=== PATIENT | female | born 1955 | race Caucasian/White ===

== ENCOUNTER 2019-12-12 07:10 | Outpatient (CLI) | payer OTHER, SELFPAY ==
--- NOTE | ~2019-12-12 | MM_ITS ---
EXAMINATION: MM screening [facility] BI w [facility]a HISTORY: Screening TECHNIQUE: Craniocaudal and mediolateral oblique 3-D tomosynthesis images were obtained and synthetic 2-D images were generated. CAD analysis was submitted and interpreted. COMPARISON: Comparison to multiple prior studies sequentially, with oldest reviewed study dated 06/2010. BREAST PARENCHYMAL COMPOSITION: The breasts are almost entirely fatty. FINDINGS: There is no evidence of suspicious mass, calcification, or architectural distortion to sugg est malignancy in either breast. There has been no suspicious interval change. IMPRESSION: 1. No mammographic evidence of malignancy. 2. Recommend routine screening mammography in one year. BI-RADS Category 1: Negative Reviewed, dictated and finalized at location A.
== END 2019-12-12 07:11 | disposition home or self-care (01) ==
PROVIDERS: PCP Family Medicine; Visit Provider Family Medicine
DX: Z12.31 Encounter for screening mammogram for malignant neoplasm of breast (principal)
CPT/HCPCS: 77063; 77067

== ENCOUNTER → 2020-01-16 09:31 | Outpatient (CLI) | payer OTHER, SELFPAY ==
--- NOTE | ~2020-01-16 | MR_ITS ---
EXAMINATION: MR knee LT wo con DATE: 01/16/2020 12:11 INDICATION: Left knee pain. Medial meniscal tear. TECHNIQUE: Magnetic resonance imaging (MRI) of the left knee was performed without intravenous contra st. Sequences included axial PD-weighted FS FSE, coronal PD-weighted FSE and PD-weighted FS FSE, sagi ttal PD-weighted FSE, and sagittal T2-weighted FS FSE. COMPARISON: Left knee radiographs 05/20/2018 FINDINGS: Medial compartment: There is a radial tear involving posterior horn of medial meniscus. There is deep partial thickness c artilage loss involving the medial and posterior articular surface of tibial condyle. There is full-t hickness cartilage loss of femoral condyle involving the central and posterior articular surface. The re are large marginal osteophytes. Lateral compartment: There is maceration of lateral meniscus. There is extensive full-thickness cartilage loss of femoral condyle and tibial condyle with cortical remodeling, mild subchondral edema-like marrow signal intens ity, and large osteophytes. Patellofemoral compartment: There is shallow partial-thickness cartilage loss involving patella and trochlea. There is deep parti al thickness cartilage loss involving central trochlea. There are large marginal osteophytes. Ligaments and tendons: There is a complete tear of anterior cruciate ligament. There are changes of tear of posterior crucia te ligament characterized by thickening and increased signal intensity. There are changes of prior sp rains of medial collateral ligament and fibular collateral ligament characterized by increased signal intensity proximally. There is mild patellar tendinopathy. Fluid: There is a large knee joint effusion with large loose bodies. There is a small John's cyst. There is moderate prepatellar and superficial infrapatellar bursitis. IMPRESSION: 1. 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 2. Tears of medial and lateral menisci. 3. Complete tear of anterior cruciate ligament. 4. Posterior cruciate ligament tear. 5. Large knee joint effusion with loose bodies. 6. Small John's cyst. Reviewed, dictated and finalized at location A. IMPRESSION: 1. 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 2. Tears of medial and lateral menisci. 3. Complete tear of anterior cruciate ligament. 4. Posterior cruciate ligament tear. 5. Large knee joint effusion with loose bodies. 6. Small John's cyst.
== END ==
PROVIDERS: PCP Family Medicine
DX: M71.22 Synovial cyst of popliteal space [Baker], left knee (principal); M25.462 Effusion, left knee; S83.522A Sprain of posterior cruciate ligament of left knee, initial encounter; X58.XXXA Exposure to other specified factors, initial encounter; S83.512A Sprain of anterior cruciate ligament of left knee, initial encounter; S83.282A Other tear of lateral meniscus, current injury, left knee, initial encounter; S83.242A Other tear of medial meniscus, current injury, left knee, initial encounter
CPT/HCPCS: 73721

== ENCOUNTER 2021-05-13 07:38 | Outpatient (CLI) | payer MEDICARE, OTHER, SELFPAY ==
--- NOTE | ~2021-05-13 | MM_ITS ---
EXAMINATION: MM screening [facility] BI w mina HISTORY: Screening TECHNIQUE: Craniocaudal and mediolateral oblique 3-D tomosynthesis images were obtained and synthetic 2-D images were generated. CAD analysis was submitted and interpreted. COMPARISON: Comparison to multiple prior studies sequentially, with oldest reviewed study dated 03/06. BREAST PARENCHYMAL COMPOSITION: There are scattered areas of fibroglandular density. FINDINGS: There is no evidence of suspicious mass, calcification, or architectural distortion to sugg est malignancy in either breast. There has been no suspicious interval change. IMPRESSION: 1. No mammographic evidence of malignancy. 2. Recommend routine screening mammography in one year. BI-RADS Category 1: Negative Reviewed, dictated and finalized at location A. R RELATIONS MANAGER
== END 2021-05-13 07:39 | disposition home or self-care (01) ==
PROVIDERS: PCP Family Medicine; Visit Provider Physician Assistant Medical
DX: Z12.31 Encounter for screening mammogram for malignant neoplasm of breast (principal)
CPT/HCPCS: 77063; 77067

== ENCOUNTER 2021-05-23 00:08 | Day surgery (SDC) | payer MEDICARE, OTHER, SELFPAY ==
[2021-05-08 13:08] VITALS: BMI 36.3
[2021-05-23 06:30] VITALS: BP 143/63; PULSE 75; RESP 16; TEMP 35.8; O2SAT 100
[2021-05-23] MEDS: LACTATED RINGERS 1,000 ML 150 ML IV CONT (06:34)
--- NOTE | 2021-05-23 06:51 | WPDANESEPPF ---
Anes - Initial Pre Proc Eval Procedure: Operation Date: 05/23/21 07:30 Proposed Procedures p Screening Colonoscopy - Moises Lee MD Date/Time: 05/23/21 06:51 Surgeon: Moises Lee MD Pre Op Diagnosis: family hx of colon ca, hx of colon polyps Patient Data Age: 66 Gender: F Height: 1.8 m Weight: 118.1 kg Last Vital Signs Temp 35.8 C L 05/23/21 06:30 Pulse 75 05/23/21 06:30 Resp 16 05/23/21 06:30 BP 143/63 H 05/23/21 06:30 Pulse Ox 100 05/23/21 06:30 Allergies Allergy/AdvReac Type Severity Reaction Status Date / Time No Known Allergies Allergy Unknown Verified 05/23/21 06:29 Home Medications Medication Instructions Recorded Confirmed Type sertraline 50 mg PO DAILY 05/23/21 05/23/21 History Patient hx anesthesia problems: none Family hx anesthesia problems: none Results Review: All pre-operative results and documents have been reviewed as part of the pre-operative evaluation. [facility] Past Medical History Medical History Obesity Surgical History Surgical History History of appendectomy History of knee surgery History of total left knee replacement History of tubal ligation Hx of cholecystectomy Family History Family History Mother Patient's mother is Diabetes mellitus Family history of arthritis Carcinoma of colon Father Cerebrovascular accident Family history of malignant neoplasm Family history of malignant neoplasm of kidney Grandparent Diabetes mellitus Family history of cardiovascular disease Family history of Alzheimer's disease Other Family history of kidney disease Social History Social History Smoking packs per day: 0.5 Smoking cigarettes per day: 10.0 Smoking end date: 05/06/85 Alcohol intake: never Substance use: never Substance use type: does not use Living arrangements: alone Spiritual care concerns: No Anes - Eval Final PreProcedure Day of Procedure 05/23/21 06:51 Patient weight: obese Heart: regular rate and rhythm and murmur (II/ SM) Lungs: clear to auscultation Airway: Mallampati scale class II Neurological: alert and oriented Last oral intake: >/= 8 hours ASA classification: II Emergent: no Anesthetic plan: proceed Anesthesia type and monitoring: general GIVS and standard monitoring Results Review: All pre-operative results and documents have been reviewed as part of the pre-operative evaluation. Informed Consent: The patient's anesthetic plan and its attendant risks and benefits were discussed with the patient/family/POA. Questions were solicited and answers provided to the satisfaction of the patient/family/POA.
--- NOTE | 2021-05-23 07:28 | WPDGICN ---
Assessment and Plan Assessment and plan (1) Anemia: Code(s): D64.9 - Anemia, unspecified Status: Acute Assessment and Plan: Patient with microcytic anemia it plan is to check stool Hemoccult start iron replacement. Iron studies will be obtained today. Colonoscopy anticipated. If iron is deficient may need to also consider upper GI evaluation at some point in the future. (2) History of colon polyps: Code(s): Z86.010 - Personal history of colonic polyps Status: Acute Assessment and Plan: Patient has a prior history of colon polyps this will be assessed colonoscopy today and should be considered at 5 year intervals in the future. (3) Family history of colon cancer in mother: Code(s): Z80.0 - Family history of malignant neoplasm of digestive organs Status: Acute Assessment and Plan: Patient's mother had colon cancer. Plan is for surveillance colonoscopy now and at 5 year intervals in the future. GI Consult Note Consult date/time: 05/23/21 07:28 HPI: Moni Ontiveros is a 66 year old female Presents for colonoscopy. Patient recently found to have anemia. She denies any obvious blood in her stools. In April was noted to have microcytic anemia. She has not started iron nor has had iron studies performed. Past medical history is significant for colon polyps removed by Dr. Arroyo several years ago. Family history is significant that her mother had colon cancer. Patient presents today for surveillance exam. It is uncertain why she has new anemia. No old lab studies are available for review. Review of Systems Review of Systems: All systems reviewed & are unremarkable except as noted in HPI and below PMFSH Past Medical History Medical History Obesity Surgical History Surgical History History of appendectomy History of knee surgery History of total left knee replacement History of tubal ligation Hx of cholecystectomy Family History Family History Mother Patient's mother is Diabetes mellitus Family history of arthritis Carcinoma of colon Father Cerebrovascular accident Family history of malignant neoplasm Family history of malignant neoplasm of kidney Grandparent Diabetes mellitus Family history of cardiovascular disease Family history of Alzheimer's disease Other Family history of kidney disease Social History Social History Smoking packs per day: 0.5 Smoking cigarettes per day: 10.0 Smoking end date: 05/06/85 Alcohol intake: never Substance use: never Substance use type: does not use Living arrangements: alone Spiritual care concerns: No Meds Home Medications and Allergies Home Medications Medication Instructions Recorded Confirmed Type sertraline 50 mg PO DAILY 05/23/21 05/23/21 History Allergies Allergy/AdvReac Type Severity Reaction Status Date / Time No Known Allergies Allergy Unknown Verified 05/23/21 06:29 Vital Signs Vital Signs - 24 hr 05/23/21 06:30 Temperature 96.5 F L Pulse Rate 75 Respiratory Rate 16 Blood Pressure 143/63 H Pulse Oximetry 100 Exam Narrative: Physical exam reveals patient be alert. Vital signs stable. HEENT exam is unremarkable. Patient is anicteric. Lungs are clear to auscultation and percussion. Heart is without murmur or extra sounds. Abdominal exam bowel sounds are present soft nontender with no hepatosplenomegaly. Digital external rectal exam is normal.
[2021-05-23] MEDS: SIMETHICONE ORAL SUSPENSION 20 MG/0.3 ML 30 ML BOTTLE 0.6 ML IRRIGATION (07:40)
[2021-05-23 07:49] VITALS: BP 89/54; PULSE 73; RESP 17; O2SAT 100
[2021-05-23 07:59] VITALS: BP 109/68; PULSE 78; RESP 15; O2SAT 99
[2021-05-23 08:09] VITALS: BP 138/55; PULSE 68; RESP 15; O2SAT 99
[2021-05-23 08:39] LABS: Iron 39 ug/dL (37-170)
[2021-05-23 08:47] LABS: Percent Iron Saturation 9 % (20-50)
[2021-05-23 09:16] LABS: Ferritin 7.39 ng/mL (11.1-264)
== END 2021-05-23 08:25 | disposition home or self-care (01) ==
PROVIDERS: PCP Family Medicine; Visit Provider Internal Medicine Gastroenterology
PROC: 0DJD8ZZ Inspection of Lower Intestinal Tract, Via Natural or Artificial Opening Endoscopic (ICD-10-PCS; CPT 45378; principal; 2021-05-23 07:30)
DX: D64.9 Anemia, unspecified (principal); K64.8 Other hemorrhoids; K57.30 Diverticulosis of large intestine without perforation or abscess without bleeding; E66.9 Obesity, unspecified; Z68.36 Body mass index [BMI] 36.0-36.9, adult
CPT/HCPCS: 45378; 36415; 82728; 83540; 83550; J2704; J7120

== ENCOUNTER 2021-06-05 02:08 | Day surgery (SDC) | payer MEDICARE, OTHER, SELFPAY ==
[2021-05-25 14:04] VITALS: BMI 36.3
[2021-06-05 08:50] VITALS: BP 135/78; PULSE 78; RESP 17; TEMP 36.4; O2SAT 99; BMI 36.6
--- NOTE | 2021-06-05 08:54 | P.PNAN_ITS ---
Anes - Initial Pre Proc Eval Procedure: Operation Date: 06/05/21 09:30 Proposed Procedures p Esophagogastroduodenoscopy - Moises Lee MD Date/Time: 06/05/21 08:54 Surgeon: Moises Lee MD Pre Op Diagnosis: BLANCO Patient Data Age: 66 Gender: F Height: 1.8 m Weight: 119.3 kg Last Vital Signs Temp 36.4 C 06/05/21 08:50 Pulse 78 06/05/21 08:50 Resp 17 06/05/21 08:50 BP 135/78 06/05/21 08:50 Pulse Ox 99 06/05/21 08:50 Allergies Allergy/AdvReac Type Severity Reaction Status Date / Time No Known Allergies Allergy Unknown Verified 06/05/21 08:49 Home Medications Medication Instructions Recorded Confirmed Type sertraline 50 mg PO DAILY 05/23/21 06/05/21 History Patient hx anesthesia problems: none Family hx anesthesia problems: none Results Review: All pre-operative results and documents have been reviewed as part of the pre-operative evaluation. [facility] Past Medical History Medical History Obesity Surgical History Surgical History History of appendectomy History of knee surgery History of total left knee replacement History of tubal ligation Hx of cholecystectomy Family History Family History Mother Patient's mother is Diabetes mellitus Family history of arthritis Carcinoma of colon Father Cerebrovascular accident Family history of malignant neoplasm Family history of malignant neoplasm of kidney Grandparent Diabetes mellitus Family history of cardiovascular disease Family history of Alzheimer's disease Other Family history of kidney disease Social History Social History Smoking packs per day: 0.5 Smoking cigarettes per day: 10.0 Smoking status: Former smoker Smoking end date: 05/06/85 Alcohol intake: never Substance use: never Substance use type: does not use Living arrangements: alone Spiritual care concerns: No Anes - Eval Final PreProcedure Day of Procedure 06/05/21 08:54 Patient weight: obese Heart: regular rate and rhythm Lungs: clear to auscultation Airway: Mallampati scale class II Neurological: alert and oriented Last oral intake: >/= 8 hours ASA classification: II Emergent: no Anesthetic plan: proceed Anesthesia type and monitoring: general GIVS and standard monitoring Results Review: All pre-operative results and documents have been reviewed as part of the pre-operative evaluation. Informed Consent: The patient's anesthetic plan and its attendant risks and benefits were discussed with the patient/family/POA. Questions were solicited and answers provided to the satisfaction of the patient/family/POA.
[2021-06-05] MEDS: LACTATED RINGERS 1,000 ML 150 ML IV CONT (09:03)
--- NOTE | 2021-06-05 09:20 | P.CONGI_ITS ---
Assessment and Plan Assessment and plan (1) BLANCO (iron deficiency anemia): Code(s): D50.9 - Iron deficiency anemia, unspecified Status: Acute Assessment and Plan: Patient with iron deficiency anemia. Recent colonoscopy unremarkable. Plan is for EGD to assess for other potential contributing causes for anemia. (2) Family history of colon cancer in mother: Code(s): Z80.0 - Family history of malignant neoplasm of digestive organs Status: Acute (3) History of colon polyps: Code(s): Z86.010 - Personal history of colonic polyps Status: Acute GI Consult Note Consult date/time: 06/05/21 09:20 HPI: Moni Ontiveros is a 66 year old female Presents for EGD. Patient was found to have microcytic anemia with iron deficient indices. Recent colonoscopy was unremarkable. She presents today for EGD. She denies abdominal pain. She has had no obvious bleeding. Family history is significant that she has had colon polyps in the past in her mother had colon cancer. Surveillance colonoscopy has been advised every 5 years. Because of iron deficiency anemia an EGD is requested today. [facility] Past Medical History Medical History Obesity Surgical History Surgical History History of appendectomy History of knee surgery History of total left knee replacement History of tubal ligation Hx of cholecystectomy Family History Family History Mother Patient's mother is Diabetes mellitus Family history of arthritis Carcinoma of colon Father Cerebrovascular accident Family history of malignant neoplasm Family history of malignant neoplasm of kidney Grandparent Diabetes mellitus Family history of cardiovascular disease Family history of Alzheimer's disease Other Family history of kidney disease Social History Social History Smoking packs per day: 0.5 Smoking cigarettes per day: 10.0 Smoking status: Former smoker Smoking end date: 05/06/85 Alcohol intake: never Substance use: never Substance use type: does not use Living arrangements: alone Spiritual care concerns: No Meds Home Medications and Allergies Home Medications Medication Instructions Recorded Confirmed Type sertraline 50 mg PO DAILY 05/23/21 06/05/21 History Allergies Allergy/AdvReac Type Severity Reaction Status Date / Time No Known Allergies Allergy Unknown Verified 06/05/21 08:49 Vital Signs Vital Signs - 24 hr 06/05/21 08:50 Temperature 97.6 F Pulse Rate 78 Respiratory Rate 17 Blood Pressure 135/78 Pulse Oximetry 99 Exam Narrative: Physical exam reveals patient to be alert. Vital signs stable. HEENT exam is unremarkable. Patient is anicteric. Lungs are clear to auscultation and percussion. Heart is without murmur or extra sounds. Abdominal exam bowel sounds present soft nontender with no hepatosplenomegaly. Digital external rectal exam deferred today.
[2021-06-05 09:41] VITALS: BP 103/54; PULSE 79; RESP 19; O2SAT 94
[2021-06-05 09:51] VITALS: BP 112/64; PULSE 71; RESP 18; O2SAT 94
[2021-06-05 10:01] VITALS: BP 117/48; PULSE 73; RESP 18; O2SAT 99
== END 2021-06-05 10:09 | disposition home or self-care (01) ==
PROVIDERS: PCP Family Medicine; Visit Provider Internal Medicine Gastroenterology
PROC: 0DJ08ZZ Inspection of Upper Intestinal Tract, Via Natural or Artificial Opening Endoscopic (ICD-10-PCS; CPT 43235; principal; 2021-06-05 09:30)
DX: D50.9 Iron deficiency anemia, unspecified (principal); K29.80 Duodenitis without bleeding; Z86.010 Personal history of colon polyps; Z80.0 Family history of malignant neoplasm of digestive organs; E66.9 Obesity, unspecified; Z68.36 Body mass index [BMI] 36.0-36.9, adult; Z87.891 Personal history of nicotine dependence
CPT/HCPCS: 43239; 87081; 88305; J2001; J2704; J7120

== ENCOUNTER 2021-10-13 18:22 | Observation (INO) | payer MEDICARE, OTHER, SELFPAY ==
[2021-10-13] VITALS (10 sets, daily range): BP systolic 91–148; BP diastolic 43–87; PULSE 77–96; RESP 17–20; TEMP 36.2–36.6; O2SAT 92–97; BMI 37.3
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
[2021-10-13] MEDS: HYDROmorphone HCL INJ (*CRX) 2 MG/ML VIAL 0.5 MG IV PUSH (19:33)
[2021-10-13] MEDS: ONDANSETRON INJ 4 MG/2 ML VIAL IV PUSH (19:33)
--- NOTE | 2021-10-13 19:40 | PC.NURSE ---
C-Collar removed per MD Tidwell. pt instructed to remain in ER bed and she is to remain NPO at this time.
[2021-10-13 19:45] LABS: Basophils Absolute Auto 0.09 K/mm3 (0.00-0.10); Basophils Percent Auto 0.5 % (0.0-1.0); Eosinophils Absolute Auto 0.16 K/mm3 (0.02-0.50); Hematocrit 39.3 % (35.0-42.0); Hemoglobin 12.5 g/dL (11.7-13.8); Immature Granulocyte Absolute 0.09 K/mm3 (0.00-0.00); Immature Granulocyte Percent A 0.5 % (0.0-0.0); Lymphocytes Absolute Auto 1.83 K/mm3 (1.10-4.50); Lymphocytes Percent Auto 11.1 % (18.0-42.0); Mean Corpuscular HGB Conc 31.8 g/dL (32.0-36.0); Mean Corpuscular Hemoglobin 29.7 pg (27.0-31.0); Mean Corpuscular Volume 93.3 fL (78.0-102.0); Mean Platelet Volume 9.5 fl (9.2-11.8); Monocytes Percent Auto 7.3 % (2.0-11.0); Neutrophils Absolute Auto 13.1 K/mm3 (1.7-7.2); Neutrophils Percent Auto 79.6 % (50.0-70.0); Platelet Count Result 313 K/mm3 (150-420); Red Blood Count 4.21 M/mm3 (4.20-5.40); Red Cell Distribution Width 15.2 % (11.6-14.4); White Blood Count 16.4 K/mm3 (4.8-10.8)
[2021-10-13 20:03] LABS: Alanine Aminotransferase 41 U/L (14-59); Albumin Level 3.8 g/dL (3.4-5.0); Alkaline Phosphatase 82 U/L (46-116); Anion Gap 8 mmol/L (8-16); Aspartate Amino Transferase 45 U/L (15-37); Bilirubin,Total 0.3 mg/dL (0.00-1.00); Blood Urea Nitrogen 17 mg/dL (7-18); Calcium 9.1 mg/dL (8.5-10.1); Carbon Dioxide 27 mmol/L (21-32); Chloride 104 mmol/L (98-108); Estimated CRCL calculation 84 ml/min; Estimated Glomerular Filt Rate > 60; Glucose 154 mg/dL (70-99); Lipase 126 U/L (73-393); Osmolality Calculated 292 mOsm/kg (285-295); Potassium 3.8 mmol/L (3.5-5.1); Sodium 139 mmol/L (136-145); Troponin I 5.4 ng/L (0.00-60.4)
--- NOTE | 2021-10-13 20:20 | PC.NURSE ---
pt attempted to stand up, pt became dizzy and nauseous while sitting on the side of the bed. Pt back in bed with head of bed elevated. Md Tidwell updated with patient status.
[2021-10-13 21:08] LABS: Add Urine Microscopic? YES; Appearance Urine Clear (Clear); Bilirubin Urine Negative (Negative); Blood Urine Negative (Negative); Color Urine Light Yellow (Yellow); Glucose Urine UA Negative (Negative); Ketones Urine Negative (Negative); Leukocyte Esterase Ur Trace (Negative); Nitrate Urine Negative (Negative); Protein Urine Negative (Negative); Urobilinogen Urine 0.2 mg/dL (0.2-1.0)
[2021-10-13 21:19] LABS: Bacteria Urine 1+ /hpf; Mucus Urine Heavy /lpf; Squamous Epithelial Cell Urine Few /hpf (Few); WBC Urine 0-3 /hpf (0-3)
--- NOTE | 2021-10-13 21:48 | PC.NURSE ---
pt to be admitted to room 205 for observation.
--- NOTE | 2021-10-13 22:00 | ADMGEN ---
This patient, Moni Ontiveros, was admitted to 2nd Floor Room 205-2 for 23 hr obs. Patient/family oriented to hospital policies and general routines including ID bracelet, bed and alarms, visiting hours, pain management, procedures, bathroom and other care routines, personal items, smoking policy, room service/diet, and visiting hours. Information on how to activate the Rapid Response Team has been discussed. Patient/Family are encouraged to report perceived risks to care and to ask questions if they do not understand what they are told or what they should do.
[2021-10-13] MEDS: traZODone HCL 50 MG TABLET PO (22:30)
--- NOTE | 2021-10-13 22:48 | PC.NURSE ---
pt given HS snack of turkey sandwich, fruit and ice cream. Pt is A&O x3 on arrival to unit. Explained and discussed POC for night. Pt given Trazadone for sleep per her request, call [place]ork at pt side and encouraged to call if needed. Pt reports understanding.
[2021-10-14] MEDS: HYDROcodone/acetaminophen (*CRX) 5-325 MG TABLET 1 TAB PO ×2 (03:02→08:08)
--- NOTE | 2021-10-14 03:04 | PC.NURSE ---
SBA up to commode, did walk to sink to wash hands, tolerated well, sore all over, worse in sternal area and in her left hip/leg, given pain medication for pain, back to bed with call light in reach
[2021-10-14] MEDS: IBUPROFEN 400 MG TABLET PO (06:57)
[2021-10-14 07:28] VITALS: BP 126/45; PULSE 71; RESP 18; TEMP 36.3; O2SAT 99
[2021-10-14] MEDS: ENOXAPARIN 40 MG/0.4 ML SYRINGE SUB-Q (08:07)
[2021-10-14] MEDS: SERTRALINE HCL 50 MG TABLET PO (08:07)
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
--- NOTE | 2021-10-14 11:35 | PC.NURSE ---
Patient discharged home with prescriptions, discharge instructions given, patient states understanding. Transported by friend via personal vehicle.
--- NOTE | 2021-10-16 10:32 | PC.NURSE ---
Pt states she received and understood her discharge instructions. Pt also states her care was exceptional .
== END 2021-10-14 11:35 | disposition home or self-care (01) ==
LOC: CHSED 18:29 → CHS2ND 21:38
PROVIDERS: Admitting Provider Internal Medicine; Emergency Provider Family Medicine; PCP Family Medicine; Visit Provider Internal Medicine
DX: M25.552 Pain in left hip (principal); R07.89 Other chest pain; I73.00 Raynaud's syndrome without gangrene; F32.9 Major depressive disorder, single episode, unspecified; V49.40XA Driver injured in collision with unspecified motor vehicles in traffic accident, initial encounter; Z96.652 Presence of left artificial knee joint; Z87.891 Personal history of nicotine dependence
CPT/HCPCS: 36415; 70450; 71250; 72125; 73700; 74176; 80053; 81001; 83690; 84484; 85025; 96372; 96374; 96375; 97161; 99285; A9270; G0378; J1170; J1650; J2405

== ENCOUNTER 2022-07-16 06:38 | Outpatient (CLI) | payer MEDICARE, OTHER, SELFPAY ==
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
--- NOTE | ~2022-07-16 | MR_ITS ---
MRI of the brain Clinical History: TIA Technique: Axial and sagittal T1-weighted images were acquired. These were followed by axial T2-weigh radha, diffusion weighted, gradient, and FLAIR images. Following intravenous administration of 20 cc Mu ltiHance gadolinium, T1-weighted fat-sat imaging was performed in the axial and coronal planes. Findings: There is no acute infarct, intracranial hemorrhage, or mass lesion. There are minimal chron ic white matter changes in the periventricular white matter bilaterally. Ventricles and subarachnoid spaces are unremarkable. Orbits are unremarkable. Paranasal sinuses and m astoid air cells are clear. Major intracranial flow voids appear intact. Sagittal midline structures are intact. No abnormal postcontrast enhancement identified. IMPRESSION: No acute infarct, intracranial hemorrhage, or mass lesion. Minimal chronic microvascular ischemic changes. Reviewed, dictated and finalized at location .
== END 2022-07-16 06:39 | disposition home or self-care (01) ==
PROVIDERS: PCP Family Medicine; Visit Provider Physician Assistant
DX: I65.23 Occlusion and stenosis of bilateral carotid arteries (principal)
CPT/HCPCS: 70553; 93880; A9577

== ENCOUNTER 2022-07-21 07:15 | Outpatient (CLI) | payer MEDICARE, OTHER, SELFPAY ==
--- NOTE | ~2022-07-21 | MM_ITS ---
EXAMINATION: MM screening dannielle BI w mina HISTORY: Screening TECHNIQUE: Craniocaudal and mediolateral oblique 3-D tomosynthesis images were obtained and synthetic 2-D images were generated. CAD analysis was submitted and interpreted. COMPARISON: Comparison to multiple prior studies sequentially, with oldest reviewed study dated 11/2012. BREAST PARENCHYMAL COMPOSITION: The breasts are almost entirely fatty. FINDINGS: There is no evidence of suspicious mass, calcification, or architectural distortion to sugg est malignancy in either breast. There has been no suspicious interval change. IMPRESSION: 1. No mammographic evidence of malignancy. 2. Recommend routine screening mammography in one year. BI-RADS Category 1: Negative Reviewed, dictated and finalized at location A.
== END 2022-07-21 07:16 | disposition home or self-care (01) ==
PROVIDERS: PCP Family Medicine; Visit Provider Family Medicine
DX: Z12.31 Encounter for screening mammogram for malignant neoplasm of breast (principal)
CPT/HCPCS: 77063; 77067

== ENCOUNTER 2022-07-24 09:33 | Outpatient (CLI) | payer MEDICARE, OTHER, SELFPAY ==
--- NOTE | 2022-07-24 09:50 | ECHO_ITS ---
Patient Info Name: Moni Ontiveros Age: 67 years : 1955 Gender: Female Ht: 71 in Wt: 280 lbs BSA: 2.57 m2 HR: 69 bpm BP: 130 / 80 mmHg Technical Quality: Good Exam Date: 07/24/2022 10:00 AM Exam Location: [facility] Patient Status: Outpatient Admit Date: 07/24/2022 Staff Ordering Physician: Homero Khan PA-C Sheet Cutting Operator: Nelly Aponte RDCS Attending Provider: Homero Khan PA-C Referring Physician: Erin CEJA; Exam Type: CA echo doppler color flow Study Info Indications I10 - Essential (primary) hypertension Complete two-dimensional, color flow and Doppler transthoracic echocardiogram is performed. Summary 1. Complete two-dimensional, color flow and Doppler transthoracic echocardiogram is performed. 2. Left ventricular chamber dimension is normal. 3. Left ventricular systolic function is normal, estimated at 60-65%. 4. The left ventricular diastolic function is grade I diastolic dysfunction. 5. E/e' 8 is minimally elevated. 6. Global longitudinal strain is normal at -20.2%. 7. Left atrial chamber dimension is mildly enlarged. 8. There is trace tricuspid valve regurgitation. 9. No pulmonary hypertension, estimated pulmonary arterial systolic pressure is 32 mmHg. Left Ventricle E/e' 8 is minimally elevated. Global longitudinal strain is normal at -20.2%. Left ventricular chamber dimension is normal. Left ventricular systolic function is normal, estimated at 60-65%. The left ventricular diastolic function is grade I diastolic dysfunction. Right Ventricle Right ventricular chamber dimension is normal. Right ventricular systolic function is normal. Left Atria Left atrial chamber dimension is mildly enlarged. Right Atria Right atrial chamber dimension is normal. Aortic Valve The aortic valve is trileaflet. There is no aortic valve stenosis. There is no aortic valve regurgitation. Pulmonic Valve There is no pulmonic regurgitation. Mitral Valve There is no mitral valve stenosis. There is no mitral valve regurgitation. Tricuspid Valve There is trace tricuspid valve regurgitation. No pulmonary hypertension, estimated pulmonary arterial systolic pressure is 32 mmHg. Pericardium/Pleural There is no pericardial effusion. Inferior Vena Cava Normal inferior vena cava with >50% collapse upon inspiration consistent with normal right atrial pressure, 5 mmHg. Aorta The aortic root size at the sinus of Valsalva is normal. Left Ventricular Outflow Tract Name Value Normal LVOT 2D LVOT Diameter 1.9 cm LVOT Doppler LVOT Peak Gradient 10 mmHg LVOT Mean Gradient 6 mmHg LVOT VTI 37 cm LVOT VTI/AV VTI Ratio 1.1 LVOT Stroke Volume 102 ml LVOT CO 6.7 l/min LVOT CI 2.6 l/min/m2 Pulmonic Valve Name Value Normal
== END 2022-07-24 09:34 | disposition home or self-care (01) ==
LOC: ANHCARD 09:35
PROVIDERS: PCP Family Medicine; Visit Provider Physician Assistant
DX: G45.9 Transient cerebral ischemic attack, unspecified (principal); I10 Essential (primary) hypertension
CPT/HCPCS: 93306

== ENCOUNTER 2022-09-28 16:32 | Emergency (ER) | payer MEDICARE, OTHER, SELFPAY ==
--- NOTE | 2022-09-28 16:41 | ED.WOUNDLAC ---
HPI - Wound/Laceration General Chief Complaint: Wound/Laceration Stated Complaint: TOE LACERATION Time Seen by Provider: 09/28/22 16:41 Source: patient Mode of arrival: ambulatory Limitations: no limitations History of Present Illness HPI narrative: Patient is a 67-year-old female that presents with laceration to the tip of great toe. Patient states laceration happened yesterday evening and has been trying to keep it covered and let it heal but it continues to bleed. Has washed with soap and water. Has not taken any pain medication or used antibiotic ointment on foot. Tetanus is up-to-date. Related Data Home Medications Medication Instructions Recorded Confirmed aspirin 81 mg tablet,delayed 81 mg PO DAILY 07/06/22 09/28/22 release Allergies Allergy/AdvReac Type Severity Reaction Status Date / Time No Known Allergies Allergy Unknown Verified 09/28/22 16:49 Review of Systems Review of Systems: All systems reviewed & are unremarkable except as noted in HPI and below Constitutional: Constitutional: Denies body ache(s), Denies chills, Denies fatigue, Denies fever(s), Denies headache(s), Denies malaise and Denies weakness Eyes: Eyes: Denies blurry vision, Denies irritation and Denies loss of vision ENT: Denies otalgia, Denies headache(s), Denies nasal discharge, Denies sinus pain and Denies sore throat Cardiovascular: Cardiovascular: Denies chest pain, Denies irregular heart rhythm and Denies dyspnea Respiratory: Respiratory: Denies dyspnea Gastrointestinal: Gastrointestinal: Denies abdominal pain, Denies melena, Denies hematochezia, Denies diarrhea, Denies nausea and Denies vomiting Musculoskeletal: Musculoskeletal: Denies back pain, Denies myalgias and Denies arthralgias Integumentary/Breasts: Skin/Breast: Denies pruritus, Denies rash and Reports wounds Neurologic: Denies headache(s), Denies loss of vision and Denies weakness Psychiatric: Psychiatric: Reports no additional psychiatric complaints Endocrine: Endocrine: Denies fatigue PMFSH Past Medical History Medical History Hypothyroid Obesity Surgical History Surgical History History of appendectomy History of knee surgery History of total left knee replacement History of tubal ligation Hx of cholecystectomy Family History Family History Mother Patient's mother is Diabetes mellitus Family history of arthritis Carcinoma of colon Father Cerebrovascular accident Family history of malignant neoplasm Family history of malignant neoplasm of kidney Grandparent Diabetes mellitus Family history of cardiovascular disease Family history of Alzheimer's disease Other Family history of kidney disease Social History Social History (Updated 05/11/22 @ 15:41 by Dede Black MA) Social History: Caffeine-very little Smoking packs per day: 0.5 Smoking cigarettes per day: 10.0 Years smoked: 10 Smoking pack-years: 5.00 Smoking status: Former smoker Tobacco type: cigarettes Smoking end date: 05/06/85 Alcohol intake: never Substance use: never Substance use type: does not use Lack of Transportation: No Lack of Food: Never True Current Housing: I Have Housing Concerned About Future Housing: No Difficulty Paying Gas/Electric Bills: No Difficulty Paying for Meds: No Currently Unemployed: No Education: High School Diploma/GED Difficulty w/ Childcare or Family Care: No Living arrangements: alone Spiritual care concerns: No Comments At time of signature, agree with nursing past medical, surgical, social and family history. There is no relevant family history pertinent to the presenting complaint. Exam Const: General: cooperative, healthy appearing, comfortable, no acute distress and well nourished Nutritional Appearance: well nourished
[2022-09-28 16:42] VITALS: BP 136/66; PULSE 77; RESP 16; TEMP 36.4; O2SAT 98
== END 2022-09-28 18:11 | disposition home or self-care (01) ==
PROVIDERS: Emergency Provider Nurse Practitioner Family; PCP Family Medicine
DX: S91.112A Laceration without foreign body of left great toe without damage to nail, initial encounter (principal); X58.XXXA Exposure to other specified factors, initial encounter; Z87.891 Personal history of nicotine dependence; E03.9 Hypothyroidism, unspecified; E66.9 Obesity, unspecified; Z68.37 Body mass index [BMI] 37.0-37.9, adult; Z96.652 Presence of left artificial knee joint
CPT/HCPCS: 12001; 99213; G0463

== ENCOUNTER 2022-12-25 08:04 | Outpatient (CLI) | payer MEDICARE, OTHER, SELFPAY ==
[2022-12-25 08:43] LABS: Hematocrit 44.6 % (37.0-47.0); Hemoglobin 14.2 g/dL (12.0-15.0)
== END 2022-12-25 08:05 | disposition home or self-care (01) ==
LOC: ANHSURGERY 08:09
PROVIDERS: Anesthesiology; PCP Family Medicine; Visit Provider Urology
DX: D64.9 Anemia, unspecified (principal); Z01.818 Encounter for other preprocedural examination
CPT/HCPCS: 36415; 85014; 85018

== ENCOUNTER 2022-12-31 01:43 | Day surgery (SDC) | payer MEDICARE, OTHER, SELFPAY ==
[2022-12-18 15:07] VITALS: BMI 40.5
--- NOTE | 2022-12-18 15:14 | PC.NURSE ---
PRE-OP INSTRUCTIONS, PLEASE READ CAREFULLY Report to the Outpatient Waiting Room, entrance under the green pavilion located off [facility], at time _0830_ on date _12/31/22_. Planned Procedure Time: _1030_. Time changes happen often and if your time is changed the preop area will call you the afternoon before. - You and your visitor will be asked to self-screen and do not enter if you have any COVID symptoms. - A mask is optional within the hospital at this time. Patients may have clear liquids (water, carbonated beverages, clear teas, apple juice) until 3 hours prior to surgery (0730 AM) with a maximum of 20 ounces. - No food from midnight until time of surgery Take the following medications with a SIP of water the morning of surgery: _LEVOTHYROXINE__ DO NOT STOP ANY OF YOUR OTHER PRESCRIPTION MEDICATIONS PRIOR TO SURGERY ?EXCEPT THE FOLLOWING Medications to discontinue per physician ____NONE , Date to take last dose Please no make-up, nail bahamian, hairspray, perfume, deodorant, or body powder the day of surgery. No jewelry (including any body piercings) or valuables the day of surgery, leave them at home. Please take a shower or bath the night before, or the morning of, surgery with an antibacterial soap. Wear comfortable, loose fitting clothing. - Jewelry must be removed prior to entering the operating room. Rings and piercings that are not removed may be cut off. - The hospital will not accept responsibility for valuables. - Please leave all valuables, including medications, at home the day of surgery. If you are going home after surgery, a licensed sulky driver must drive you home. - NO public transportation without another adult if you receive anesthesia. - We recommend that an adult stay with you for 24 hours following discharge. - We also recommend that you do not drive, make important decision, drink alcoholic beverages, or take any drugs that were not prescribed by your health care provider for at least 24 hours after your discharge time. Follow any additional instructions given to you from your surgeon. If you or anyone in your household have experienced Covid symptoms in the past week, please notify your surgeon or the nurse liaison at the phone number below for possible testing. Telephone instructions given to _PATIENT_and asked if any additional questions and then verbalized understanding. Patient advised to call surgeon office or pre surgery nurse liaison [phone] if any additional questions.
--- NOTE | 2022-12-23 20:54 | PM.IMHP ---
H&P: HPI History of Present Illness Date/Time: 12/23/22 20:54 Chief Complaint: incontinence Narrative: she has mixed urinary incontinence. She is on medication for the overactive bladder. She desires surgical treatment for stress incontinence Review of Systems Review of Systems: All systems reviewed & are unremarkable except as noted in HPI and below PMFSH Past Medical History Medical History Hypothyroid Obesity Surgical History Surgical History History of appendectomy History of knee surgery History of total left knee replacement History of tubal ligation Hx of cholecystectomy Family History Family History Mother Patient's mother is Diabetes mellitus Family history of arthritis Carcinoma of colon Father Cerebrovascular accident Family history of malignant neoplasm Family history of malignant neoplasm of kidney Grandparent Diabetes mellitus Family history of cardiovascular disease Family history of Alzheimer's disease Other Family history of kidney disease Social History Social History Social History: Caffeine-very little Smoking packs per day: 0.5 Smoking cigarettes per day: 10.0 Years smoked: 10 Smoking pack-years: 5.00 Smoking status: Former smoker Tobacco type: cigarettes Second hand tobacco smoke exposure: No Smoking end date: 05/06/85 Alcohol intake: never Substance use: never Substance use type: does not use Lack of Transportation: No Lack of Food: Never True Current Housing: I Have Housing Concerned About Future Housing: No Difficulty Paying Gas/Electric Bills: No Difficulty Paying for Meds: No Currently Unemployed: No Education: High School Diploma/GED Difficulty w/ Childcare or Family Care: No Living arrangements: alone Spiritual care concerns: No Meds Home Medications and Allergies Home Medications Medication Instructions Recorded Confirmed Type sertraline 50 mg tablet 50 mg PO DAILY #90 tabs 02/05/22 12/18/22 Rx aspirin 81 mg tablet,delayed 81 mg PO DAILY 07/06/22 12/18/22 History release atorvastatin 20 mg tablet 20 mg PO QHS #90 tabs 07/16/22 12/18/22 Rx levothyroxine 50 mcg tablet 50 mcg PO DAILY #90 tabs 08/06/22 12/18/22 Rx (Synthroid) ferrous sulfate 325 mg (65 mg 325 mg PO BID #180 tabs 10/29/22 12/18/22 Rx iron) tablet amoxicillin 500 mg tablet 2,000 mg PO .COMPLEX #24 tabs 12/05/22 12/18/22 Rx Allergies Allergy/AdvReac Type Severity Reaction Status Date / Time No Known Allergies Allergy Unknown Verified 12/18/22 15:06 Exam Narrative: no acute distress normal breathing alert oriented x3 urethral hypermobility present Assessment and Plan Assessment and plan (1) JENNY (stress urinary incontinence, female): Code(s): N39.3 - Stress incontinence (female) (male) Status: Acute Assessment and Plan: urethral sling. Understands the risks of bleeding, infection, damage to surrounding organs, damage to the urinary tract, vaginal mesh extrusion, urinary tract mesh erosion, obstructive voiding requiring secondary procedure, hip and leg pain, dyspareunia. Agrees to proceed
[2022-12-31] VITALS (9 sets, daily range): BP systolic 111–137; BP diastolic 54–72; PULSE 55–78; RESP 10–18; TEMP 36.5–36.8; O2SAT 93–100
--- NOTE | 2022-12-31 07:18 | WPDHPUPDATE1 ---
History and Physical Update Update Date/Time: 12/31/22 07:18 History and Physical has been reviewed, including an updated exam of the patient. There are NO changes in the patient's condition. Risks, benefits, and alternatives have been discussed and questions answered. Patient agrees to proceed with procedure.
--- NOTE | 2022-12-31 09:57 | WPDANESEPPF ---
Anes - Initial Pre Proc Eval Procedure: Operation Date: 12/31/22 10:30 Proposed Procedures p Urethral Sling - Jamison Neely MD Date/Time: 12/31/22 09:57 Surgeon: Jamison Neely MD Pre Op Diagnosis: stress incontinence Patient Data Age: 67 Gender: F Height: 1.8 m Weight: 131.81 kg Allergies Allergy/AdvReac Type Severity Reaction Status Date / Time No Known Allergies Allergy Unknown Verified 12/31/22 08:37 Home Medications Medication Instructions Recorded Confirmed Type sertraline 50 mg tablet 50 mg PO DAILY #90 tabs 02/05/22 12/31/22 Rx aspirin 81 mg tablet,delayed 81 mg PO DAILY 07/06/22 12/31/22 History release atorvastatin 20 mg tablet 20 mg PO QHS #90 tabs 07/16/22 12/31/22 Rx levothyroxine 50 mcg tablet 50 mcg PO DAILY #90 tabs 08/06/22 12/31/22 Rx (Synthroid) ferrous sulfate 325 mg (65 mg 325 mg PO BID #180 tabs 10/29/22 12/31/22 Rx iron) tablet amoxicillin 500 mg tablet 2,000 mg PO .COMPLEX #24 tabs 12/05/22 12/18/22 Rx hydrocodone 5 mg-acetaminophen 325 1 tablet PO Q6H PRN pain #14 tabs 12/31/22 Rx mg tablet Patient hx anesthesia problems: none Family hx anesthesia problems: none Results Review: All pre-operative results and documents have been reviewed as part of the pre-operative evaluation. [facility] Past Medical History Medical History Hypothyroid Obesity Surgical History Surgical History History of appendectomy History of knee surgery History of total left knee replacement History of tubal ligation Hx of cholecystectomy Family History Family History Mother Patient's mother is Diabetes mellitus Family history of arthritis Carcinoma of colon Father Cerebrovascular accident Family history of malignant neoplasm Family history of malignant neoplasm of kidney Grandparent Diabetes mellitus Family history of cardiovascular disease Family history of Alzheimer's disease Other Family history of kidney disease Social History Social History Social History: Caffeine-very little Smoking packs per day: 0.5 Smoking cigarettes per day: 10.0 Years smoked: 10 Smoking pack-years: 5.00 Smoking status: Former smoker Tobacco type: cigarettes Second hand tobacco smoke exposure: No Smoking end date: 05/06/85 Alcohol intake: never Substance use: never Substance use type: does not use Lack of Transportation: No Lack of Food: Never True Current Housing: I Have Housing Concerned About Future Housing: No Difficulty Paying Gas/Electric Bills: No Difficulty Paying for Meds: No Currently Unemployed: No Education: High School Diploma/GED Difficulty w/ Childcare or Family Care: No Living arrangements: alone Spiritual care concerns: No Anes - Eval Final PreProcedure Day of Procedure 12/31/22 09:57 Patient weight: morbidly obese Heart: regular rate and rhythm Lungs: clear to auscultation Airway: Mallampati scale class II Neurological: alert and oriented Last oral intake: >/= 8 hours ASA classification: III Emergent: no Anesthetic plan: proceed Anesthesia type and monitoring: general LMA and standard monitoring Results Review: All pre-operative results and documents have been reviewed as part of the pre-operative evaluation. Informed Consent: The patient's anesthetic plan and its attendant risks and benefits were discussed with the patient/family/POA. Questions were solicited and answers provided to the satisfaction of the patient/family/POA.
--- NOTE | 2022-12-31 09:58 | SUR.PREOP ---
0950- Attempted to place IV in Left hand. Small bruising w/ hematoma, ice pack to left hand. pt does not complain of pain. will continue to monitor.
[2022-12-31] MEDS: LACTATED RINGERS 1,000 ML 30 ML IV CONT ×2 (10:05→10:59)
[2022-12-31] MEDS: ceFAZolin 3 GM/D5W 100 ML 100 ML IVPB (10:17)
--- NOTE | 2022-12-31 11:01 | W.PM.PROC2 ---
Procedure Note - Detailed Date of Procedure 12/31/22 Pre-op Diagnosis stress incontinence Post-op Diagnosis Same Procedure Performed mid urethral sling cystoscopy Surgeon Jamison Neely MD Anesthesia General Indications This is a female with confirm stress urinary incontinence. She desires surgical correction. She understands the risks of bleeding, infection, injury to the urinary tract, vaginal mesh extrusion, urinary tract mesh erosion, obstructive voiding requiring a secondary procedure, hip and leg pain, dyspareunia, inability to improve overactive bladder symptoms. She agrees to proceed. Description of Procedure She was correctly identified. Informed consent obtained. She was brought the operating room. She was given appropriate anesthesia. She was given appropriate perioperative antibiotics. A time-out performed. I marked out the site of the inner thigh incisions. I anesthetized the skin and made those incisions. I anesthetized the anterior vaginal wall over the mid urethra. I made a 1 cm incision. I dissected out laterally taking great care not to injure the refilled vaginal wall. I passed the helical trocars. First on the left. Then on the right. I did this from the thigh incision towards the vaginal incision. The sling was connected to the trocars and brought out through the thigh incision. I tensioned the sling appropriately. I cut and the plastic sheaths. I then closed the incision with 2 0 Vicryl. On cystoscopy there is no tumors or surgical artifact. There was no surgical artifact in the urethra. I cut the excess sling material. Close incisions with glue. She was awakened and transferred to the PACU in stable condition. Of note The passage of trocars and incision closure was made somewhat more difficult by her body habitus. Ultimately the procedure was completed successfully without any mesh exposure or abnormal cystoscopy. Implants Urethral sling Estimated Blood Loss 30 Drains No Packing No Pathology None sent Complications No immediate complications Condition Stable Disposition PACU
[2022-12-31] MEDS: oxyCODONE HCL (*CRX) 5 MG TAB IR PO (12:30)
== END 2022-12-31 13:38 | disposition home or self-care (01) ==
PROVIDERS: PCP Family Medicine; Visit Provider Urology
PROC: (CPT 57288; principal; 2022-12-31 10:30)
DX: N39.3 Stress incontinence (female) (male) (principal); E03.9 Hypothyroidism, unspecified; E66.9 Obesity, unspecified; Z68.41 Body mass index [BMI] 40.0-44.9, adult; Z87.891 Personal history of nicotine dependence
CPT/HCPCS: 57288; A9270; C1771; J0690; J1100; J2250; J2405; J2704; J3010; J7030; J7120

== ENCOUNTER 2023-11-02 11:15 | Outpatient (CLI) | payer MEDICARE, SELFPAY ==
--- NOTE | ~2023-11-02 | MM_ITS ---
EXAMINATION: MM screening dannielle BI w mina HISTORY: Screening mammogram TECHNIQUE: Craniocaudal and mediolateral oblique 3-D tomosynthesis images were obtained and synthetic 2-D images were generated. CAD analysis was submitted and interpreted. COMPARISON: 07/23/2022, 2021, 12/12/2019 BREAST PARENCHYMAL COMPOSITION:Not Dense. The breasts are almost entirely fatty FINDINGS: No suspicious mass, calcification, or architectural distortion are identified in either devaughn ast to suggest malignancy. There has been no suspicious interval change. IMPRESSION: No mammographic evidence of malignancy. Recommend routine screening mammography in one year. BI-RADS Category 1: Negative Reviewed, dictated and finalized at location .
== END 2023-11-02 11:16 | disposition home or self-care (01) ==
LOC: ANHIMG 11:18
PROVIDERS: PCP Family Medicine; Visit Provider Family Medicine
DX: Z12.31 Encounter for screening mammogram for malignant neoplasm of breast (principal)
CPT/HCPCS: 77063; 77067

== ENCOUNTER 2024-03-02 16:24 | Outpatient (CLI) | payer MEDICARE, SELFPAY ==
--- NOTE | ~2024-03-02 | XR_ITS ---
EXAMINATION: XR lumbar spine 2-3V DATE: 03/02/2024 16:42 INDICATION: Sacroiliitis, not elsewhere classified. TECHNIQUE: 3 views of lumbar spine were obtained. COMPARISON: Lumbar spine radiographs 07/22/2011 FINDINGS: There is 5 degrees levocurvature of lumbar spine. There is 5 mm anterolisthesis of L4 on L5 . Vertebral body heights are normal. There is severely decreased disc height at L1-L2, mildly decreas ed disc height at L2-L3 and L4-L5, and severely decreased disc height at L5-S1. There is multilevel s evere facet joint osteoarthritis. IMPRESSION: 1. Severe lumbar spondylosis. Reviewed, dictated and finalized at location B.
--- NOTE | ~2024-03-02 | XR_ITS ---
EXAMINATION: XR hip LT 2V w AP pelvis DATE: 03/02/2024 16:42 INDICATION: Sacroiliitis, not elsewhere classified. TECHNIQUE: An anteroposterior view of the pelvis and 2 views of left hip were obtained. COMPARISON: Left foot radiographs 07/22/2011 FINDINGS: Alignment is normal. No fracture. There is severe lumbar spondylosis. There is moderate ost eoarthritis of the sacroiliac joints. Osteitis pubis is noted. There is mild right hip osteoarthritis and moderate left hip osteoarthritis. IMPRESSION: 1. Mild right hip osteoarthritis and moderate left hip osteoarthritis. 2. Moderate osteoarthritis of the sacroiliac joints. Reviewed, dictated and finalized at location B.
== END 2024-03-02 16:25 | disposition home or self-care (01) ==
LOC: GOSHIMG 16:25
PROVIDERS: PCP Family Medicine; Visit Provider Nurse Practitioner Family
DX: M46.1 Sacroiliitis, not elsewhere classified (principal); M47.896 Other spondylosis, lumbar region; M16.11 Unilateral primary osteoarthritis, right hip
CPT/HCPCS: 72100; 73502

== ENCOUNTER 2025-02-11 13:40 | Outpatient (CLI) | payer MEDICARE, SELFPAY ==
--- NOTE | ~2025-02-11 | MM_ITS ---
EXAMINATION: MM screening dannielle BI w mina HISTORY: Screening TECHNIQUE: Craniocaudal and mediolateral oblique 3-D tomosynthesis images were obtained and synthetic 2-D images were generated. CAD analysis was submitted and interpreted. COMPARISON: Comparison to multiple prior studies sequentially, with oldest reviewed study dated , 07/20/2017 BREAST PARENCHYMAL COMPOSITION: The breasts are almost entirely fatty. FINDINGS: There is no evidence of suspicious mass, calcification, or architectural distortion to suggest malignancy in either breast. IMPRESSION: 1. No mammographic evidence of malignancy. 2. Recommend routine screening mammography in one year. BI-RADS Category 1: Negative Reviewed, dictated and finalized at location B.
--- NOTE | ~2025-02-11 | DEXA_ITS ---
Bone Density Report Name: VIVEK PRECIADO Age: 69 Sex: Female Ethnicity: White Date of : 1955 Indication: postmenopausal; screening for osteoporosis; height loss; Referring Provider: NAOMI CALDWELL Study: Bone densitometry was performed. Exam Date: February 11, 2025 Accession number: [id number] Bone Density: Region BMD T-score Z-score Classification AP Spine(L1-L4) 1.090 0.4 2.4 Normal Femoral Neck (Left) 0.825 -0.2 1.5 Normal Total Hip (Left) 1.021 0.6 2.1 Normal Femoral Neck (Right) 0.940 0.8 2.5 Normal Total Hip (Right) 0.910 -0.3 1.2 Normal Femoral Neck Mean 0.882 0.3 2.0 Normal Total Hip Mean 0.966 0.2 1.6 Normal World Health Organization criteria for BMD impression classify patients as: Normal (T-score at or above -1.0), Osteopenia (T-score between -1.0 and -2.5), or Osteoporosis (T-score at or below -2.5). 10-year Fracture Risk: FRAX not reported because: All T-scores for Spine Total, Hip Total, Femoral Neck at or above -1.0 Clinical Information Provided by Patient: Has used the following medications: Vitamin D, Calcium Patient maximum height was 71 Menopause Age: 51 No regular weight bearing exercise Does not regularly consume dairy products Drinks caffeinated beverages Impression: The patient has normal bone mass. Discussion: BONE DENSITY IS ABOVE THE MINIMUM DESIRABLE LEVEL AT ALL SKELETAL SITES TESTED. This patient?s bone mineral density is above the minimum desirable level (T-score -1.0 or better) at all sites measured. The patient should follow a healthful lifestyle (good nutrition with adequate calcium and vitamin D, and appropriate weight-bearing exercise). Follow-Up: Consider repeating this study in 5 years or sooner if there is some new clinical indication. Reported by: YONI on 02/22/2025 1:32:00 PM. Reviewed, dictated and finalized at location A.
== END 2025-02-11 13:41 | disposition home or self-care (01) ==
PROVIDERS: PCP Family Medicine; Visit Provider Nurse Practitioner Family
DX: Z78.0 Asymptomatic menopausal state (principal); Z12.31 Encounter for screening mammogram for malignant neoplasm of breast
CPT/HCPCS: 77063; 77067; 77080